=== PATIENT | female | born 1940 | race Caucasian/White ===

== ENCOUNTER 2022-06-02 12:23 | Outpatient (RCR) | payer MEDICARE, SELFPAY | END 2022-06-16 16:00 | disposition home or self-care (01) | LOC: HO.WCC 12:23 | PROVIDERS: PCP Internal Medicine; Referring Provider Internal Medicine; Visit Provider Physician Assistant | DX: L97.811 Non-pressure chronic ulcer of other part of right lower leg limited to breakdown of skin (principal); I87.2 Venous insufficiency (chronic) (peripheral); R60.0 Localized edema | CPT/HCPCS: 97597; 99212 ==

== ENCOUNTER 2022-08-15 10:04 | Outpatient (RCR) | payer MEDICARE, SELFPAY | END 2022-08-15 16:00 | disposition home or self-care (01) | LOC: HO.WCC 10:04 | PROVIDERS: PCP Internal Medicine; Visit Provider Physician Assistant | DX: Z09 Encounter for follow-up examination after completed treatment for conditions other than malignant neoplasm (principal); I87.2 Venous insufficiency (chronic) (peripheral); R60.0 Localized edema; I11.0 Hypertensive heart disease with heart failure; I50.9 Heart failure, unspecified; G62.9 Polyneuropathy, unspecified; I26.99 Other pulmonary embolism without acute cor pulmonale; Z87.2 Personal history of diseases of the skin and subcutaneous tissue | CPT/HCPCS: 99213 ==

== ENCOUNTER 2022-09-15 14:45 | Outpatient (RCR) | payer MEDICARE, SELFPAY | END 2022-09-30 16:00 | disposition home or self-care (01) | LOC: HO.WCC 14:45 | PROVIDERS: PCP Internal Medicine; Visit Provider Physician Assistant | DX: I87.331 Chronic venous hypertension (idiopathic) with ulcer and inflammation of right lower extremity (principal); L97.211 Non-pressure chronic ulcer of right calf limited to breakdown of skin; I87.2 Venous insufficiency (chronic) (peripheral); I11.0 Hypertensive heart disease with heart failure; I50.9 Heart failure, unspecified; G62.9 Polyneuropathy, unspecified; I26.99 Other pulmonary embolism without acute cor pulmonale; Z91.199 Patient's noncompliance with other medical treatment and regimen due to unspecified reason | CPT/HCPCS: 11042; 99212 ==

== ENCOUNTER 2022-09-26 10:05 | Outpatient (REF) | payer MEDICARE, SELFPAY ==
--- NOTE | ~2022-09-26 | US_ITS ---
CLINICAL INFORMATION: EXAMINATION: RIGHTLOWER EXTREMITY VENOUS ULTRASOUND (Reflux Exam) CLINICAL INDICATION: Venous insufficiency COMPARISON: None. TECHNIQUE: Color flow triplex imaging and compression Doppler was performed to evaluate both the deep and the superficial systems on the right with the patient in reverse Trendelenburg position. FINDINGS: 1. DEEP VENOUS ULTRASOUND OF THE RIGHT LOWER EXTREMITY: Respiratory variation, normal compression and augmented flow are noted in the right common femoral vein as well as the right popliteal vein and there is no evidence of deep venous thrombosis at these locations. There is no evidence of reflux in the deep system in either the common femoral vein or femoral vein. There is 3.1 seconds reflux in the popliteal vein. There is no evidence of a Barlow's cyst. 2. SUPERFICIAL ULTRASOUND WITH DOPPLER OF RIGHT LOWER EXTREMITY: The right great saphenous vein at the saphenofemoral junction measures 7 mm, at the mid thigh 4 mm, [id number] 4 mm, [id number] 3 mm, at mid calf 3 mm and at the ankle measures 3 mm. There is reflux in the greater saphenous vein measuring 2.9 seconds at the knee, 2.8 seconds below the knee, 3.3 seconds in the mid calf and greater than 3.6 seconds at the ankle. The right small saphenous vein measures 2-4 mm and shows no reflux. There are varicosities in the thigh that measure 3 to 4 mm and do not demonstrate reflux. There is a varicosity in the calf that measures 4 mm and demonstrates 3.2 seconds reflux. . US/US venous duplex LE RT IMPRESSION: 1. No evidence of DVT. Popliteal vein deep venous reflux. 2. Right greater saphenous vein reflux.
== END 2022-09-26 10:06 | disposition home or self-care (01) ==
LOC: HO.US 10:05
PROVIDERS: PCP Internal Medicine; Visit Provider Physician Assistant
DX: I87.2 Venous insufficiency (chronic) (peripheral) (principal)
CPT/HCPCS: 93971

== ENCOUNTER 2022-12-23 14:09 | Outpatient (AMB) | payer MEDICARE, SELFPAY ==
[2022-12-23 14:15] VITALS: BP 110/72; PULSE 91; O2SAT 98; BMI 36.2
--- NOTE | 2022-12-23 14:15 | A.OFFVIS_ITS ---
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 Pt states her wound is healed and scabbed over. Pt states she has issues with both of her legs mainly the right at the moment but the left is getting worse she states. Pt states she has severe swelling in her legs,ankles, and feet. Pt states she gets tingling in both of her legs and feet. Pt states she has tried compression stockings but she states they make it worse. Pt states she has some red discoloration in both of her lower legs that is worse some days than others. 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 Complaints include pain over varicosities, swelling of lower extremities, cramping, fatigue, and heaviness of the lower extremities. It has been affecting there daily activities including walking and has led to a wound. It is noted more so in right leg. Patient denies any previous venous surgery or injections. Patient denies any history of DVT/ PE. Patient denies any history of phlebitis. Trial of compression includes - [id number] and compression wraps [facility] They now present for vascular evaluation regarding their varicose veins. [facility] Surgical History (Updated 12/23/22 @ 14:23 by Phyllis Linda MA) Hx of total hysterectomy Family History (Updated 12/23/22 @ 14:21 by Phyllis Linda MA) Mother Lung cancer Social History (Updated 12/23/22 @ 14:21 by Phyllis Linda MA) Household Members: Spouse Housing: House Alcohol intake: never Patient Tobacco Use Status: Never used Tobacco service: No Current occupational status: retired Review of Systems Const Reports as per HPI ENT Reports no additional complaints Card Denies chest pain, Denies chest pain at rest and Denies chest pain with activity Resp Denies chest congestion and Denies cough GI Reports no additional complaints Musc Details: pain over varicosities, aching of lower extremities, swelling, cramping, heaviness and tiredness, itching Denies abnormal gait Skin/Breast Reports pruritus and Denies wounds Neuro Reports no additional complaints and Denies abnormal gait Psych Denies no additional complaints Physical Exam Vital Signs: Last Vital Signs Pulse 91 12/23/22 14:15 BP 110/72 12/23/22 14:15 Pulse Ox 98 12/23/22 14:15 Oxygen Delivery Method Room Air 12/23/22 14:15 BMI result Body Mass Index 36.2 Const General: cooperative, healthy appearing and comfortable Orientation/consciousness: oriented to person, oriented to place and oriented to time Neck Carotids: no bruits Chest Chest palpation & inspection: normal inspection of the chest and normal palpation of entire chest wall Resp Effort & Inspection: normal respiratory effort and able to speak in complete sentences Cardio Rate: regular rate Heart sounds: S1 normal heart sound present and S2 normal heart sound present Peripheral pulses: Peripheral pulses 2+ throughout GI Inspection: Yes normal to inspection Skin Other: +2 edema, right greater than left CEAP Classification C6 - open ulceration lateral calf Ep - Etiology Primary As - superficial veins P - reflux General skin exam: dry skin Neuro General: oriented to person, oriented to place and oriented to time Extrem Right lower extremity: full ROM, normal capillary refill and edema Left lower extremity: full ROM, normal capillary refill and edema Psych Mental Status: mental status grossly normal Results Reviewed Results Reviewed: Brief summary of venous insufficiency testing is as follows: right great saphenous vein: Positive right small saphenous vein: negative right accessory vein: none present Unfortunately left lower extremity venous insufficiency was not done Please note there is no evidence of any venous aneurysms or significant tortuosity Assessment & Plan Assessment & Plan (1) Varicose veins of right lower extremity with inflammation: Code(s): I83.11 - Varicose veins of right lower extremity with inflammation Plan: This patient has varicose veins with inflammation. They continue to be a source of discomfort for the patient. The patient has tried conservative treatment with compression, leg elevation and exercise program for over 3 months time. They have been compliant with all treatment. This has provided minimal relief for the patient. I do not anticipate this course of treatment will alter the underlying etiology. The patient has been scheduled for lower extremity venous treatment inclusive of --- right great saphenous vein Cyanoacralate ablation. Risks, benefits, and complications of this procedure has been discussed in detail with the patient including but not limited to bleeding, infection, and the development of a DVT. The patient has demonstrated a clear understanding and has consented. We will schedule the patient as soon as possible. Thank you for allowing us to participate in this patient's care. If there are any questions or concerns please do not hesitate to contact us. Coding Level of Care Code New Pt Level 4 (68065) Diagnoses Varicose veins of right lower extremity with inflammation I83.11
== END 2022-12-23 14:44 | disposition home or self-care (01) ==
PROVIDERS: PCP Internal Medicine; Visit Provider Surgery Vascular Surgery
DX: I83.11 Varicose veins of right lower extremity with inflammation (principal)
CPT/HCPCS: 99204

== ENCOUNTER → 2022-12-23 14:09 | Outpatient (BNVA) | payer MEDICARE, SELFPAY | PROVIDERS: PCP Internal Medicine; Visit Provider Surgery Vascular Surgery ==

== ENCOUNTER 2023-02-06 12:17 | Outpatient (AMB) | payer MEDICARE, SELFPAY ==
--- NOTE | 2023-02-06 12:43 | A.OFFVIS_ITS ---
Intake Vital Signs 02/06/23 12:44 Height 5 ft 2 in Weight 198 lb BMI 36.2 Intake Visit Reasons: Right GSV Venaseal Allergies ciprofloxacin Allergy (Intermediate, Verified 02/06/23 12:44) Stomach Upset PFSH Surgical History Hx of total hysterectomy Family History Mother Lung cancer Social History Household Members: Spouse Housing: House Alcohol intake: never Patient Tobacco Use Status: Never used Tobacco service: No Current occupational status: retired Physical Exam Vital Signs: BMI result Body Mass Index 36.2 Office Procedures Vascular Office Procedure Details Details: Diagnosis: Right Leg varicose veins with inflammation Procedure: Endovenous Ablation of the right Great Saphenous Vein with VenaSeal Closure System Anesthesia: Local infiltration 5 cc, Estimated Blood Loss: min Specimen: none Duplex ultrasound was used to map out the insufficient saphenous vein, and access was determined and marked on the overlying skin. The depth and diameter of the vein(s) to be treated was documented. The patient was placed supine on the procedure table and the leg was prepped and draped using sterile technique. Ultasound guidance was again used to localize the access site. 1% lidocaine was injected as a local anesthetic in the subcutaneous tissues at the target location in the GSV in the lower leg. Using ultrasound guidance, access was gained at this location with the 19 gauge thin walled access needle and followed by introduction of a short guidewire, location confirmed with ultrasound. A small, 3 mm incision was made at the access site to allow for introduction and placement of the 7 Fr x7cm introducer/dilator. The dilator and guidewire were removed. The 0.035 guidewire from the VenaSeal kit was then introduced and positioned at the saphenofemoral junction using ultrasound guidance. The 80 cm 7 Fr introducer sheath/dilator was positioned 5cm from the saphenofemoral junction. The guidewire and dilator were removed, and the remaining sheath was flushed with sterile saline, with the syringe remaining in place prior to the n ext steps. The cyanoacrylate adhesive was precisely primed into the 5 F delivery catheter and this catheter/syringe combination was attached within the dispenser gun. This assembly was introduced through the 7F sheath and positioned 5 cm caudal of the saphenofemoral junction under ultrasound guidance. The steps from the IFU were followed for dispensing amounts, locations and compression times, 2 aliquots proximally with 3 minutes of compression, and 1 aliquot every 3 cm distally with 30 sec of compression along the course of the vessel. Following the last injection and compression sequence, the catheter and introducer sheath were pulled out from the access site. Hemostasis was achieved with manual compression and an adhesive bandage was applied to the incision. Ultrasound confirmed complete coaptation and closure of the treated segments of the GSV, and the absence of any DVT at the saphenofemoral junction. Treatment time was approximately 7 minutes and the vein length treated was 55 cm. The drapes were removed and the patient cleaned and prepared for discharge. Post op ultrasound check is scheduled for 48-72 hours and the patient was given written post-op instructions. 36875 - Endoven Ther Chem Adhes 1st All charges added?: Procedure code (CPT) selection complete Coding Level of Care Code Procedure Only CPT Codes Details - Vascular 3: 50323 - Endoven Ther Chem Adhes 1st ([id number])
[2023-02-06 12:44] VITALS: BMI 36.2
== END 2023-02-06 13:25 | disposition home or self-care (01) ==
PROVIDERS: PCP Internal Medicine; Visit Provider Surgery Vascular Surgery
DX: I83.11 Varicose veins of right lower extremity with inflammation (principal)
CPT/HCPCS: 36482

== ENCOUNTER → 2023-02-06 12:17 | Outpatient (BNVA) | payer MEDICARE, SELFPAY | PROVIDERS: PCP Internal Medicine; Visit Provider Surgery Vascular Surgery | DX: I83.11 Varicose veins of right lower extremity with inflammation (principal) | CPT/HCPCS: 36482 ==

== ENCOUNTER 2023-02-09 12:29 | Outpatient (REF) | payer MEDICARE, SELFPAY ==
--- NOTE | ~2023-02-09 | US_ITS ---
EXAMINATION: US VENOUS ULTRASOUND WITH DOPPLER LOWER EXTREMITY, RIGHT CLINICAL INFORMATION: Pain in right leg. Rule out DVT right lower extremity status post right great saphenous vein Venaseal 02/06/2023. COMPARISON: Venous ultrasound 09/26/2022. TECHNIQUE: Ultrasound of the deep veins is performed from the hip to the calf with compression sonography and color and pulse Doppler assessment. Spectral analysis with color-flow imaging is performed. FINDINGS: The patient could not tolerate compression of the distal femoral vein or popliteal vein. Otherwise, there is normal venous compression and respiratory variation and augmented flow. The visualized common femoral vein, superficial femoral vein, profunda femoral vein, popliteal vein, and the peroneal vein shows no evidence of deep venous thrombosis. The posterior tibial vein was not visualized due to edema. There is no significant popliteal fossa cyst. The great saphenous vein is closed beginning 2.2 cm below the saphenofemoral junction. US/US venous duplex LE RT IMPRESSION: The great saphenous vein is closed beginning 2.2 cm below the saphenofemoral junction. No DVT demonstrated in the right lower extremity. Somewhat limited examination as the patient was unable to tolerate compression in the distal femoral vein and popliteal vein and the posterior tibial vein was not visualized due to edema.
== END 2023-02-09 12:30 | disposition home or self-care (01) ==
LOC: HO.US 12:29
PROVIDERS: PCP Internal Medicine; Visit Provider Surgery Vascular Surgery
DX: M79.604 Pain in right leg (principal)
CPT/HCPCS: 93971

== ENCOUNTER 2023-02-19 10:54 | Outpatient (AMB) | payer MEDICARE, SELFPAY ==
--- NOTE | 2023-02-19 10:55 | A.OFFVIS_ITS ---
Intake Vital Signs 02/19/23 10:57 Height 5 ft 2 in Weight 198 lb BMI 36.2 Intake Visit Reasons: 2 week follow up right gsv venaseal Intake Note: 2 week follow up Right GSV Venaseal 02/06/23. Pt states she still has some bruising and states its a little tender with or without touching the treated area. States swellijng in Right LE has decreased. US was done on 09/26/22 by woundcare and no longer has wounds on LE Accompanied by: Self / Same As Patient Allergies ciprofloxacin Allergy (Intermediate, Verified 02/19/23 11:05) Stomach Upset metronidazole [From Metrogel] Allergy (Intermediate, Verified 02/19/23 11:05) Rash HPI 2 week follow up right gsv venaseal HPI Details Very pleasant 82-year-old female presents for follow-up status post right lower extremity Cyanoacralate ablation. She reports she is doing really well after the procedure. Swelling and discomfort have decreased. Lateral calf ulceration also appears to have closed over. She now presents for follow-up. Of note postprocedure ultrasound was negative for DVT. In addition she is concerned about her left lower extremity which has similar swelling issues. [facility] Surgical History (Updated 02/19/23 @ 11:08 by YVONNE Cuellar) Status post ablation of incompetent vein using laser (~02/06/23) Hx of total hysterectomy Family History Mother Lung cancer Social History Household Members: Spouse Housing: House Alcohol intake: never Patient Tobacco Use Status: Never used Tobacco service: No Current occupational status: retired Review of Systems Const Reports as per HPI ENT Reports no additional complaints Card Denies chest pain, Denies chest pain at rest and Denies chest pain with activity Resp Denies chest congestion and Denies cough GI Reports no additional complaints Musc Details: pain over varicosities, aching of lower extremities, swelling, cramping, heaviness and tiredness, itching Denies abnormal gait Skin/Breast Reports pruritus and Denies wounds Neuro Reports no additional complaints and Denies abnormal gait Psych Denies no additional complaints Physical Exam Vital Signs: BMI result Body Mass Index 36.2 Const General: cooperative, healthy appearing and comfortable Orientation/consciousness: oriented to person, oriented to place and oriented to time Neck Carotids: no bruits Chest Chest palpation & inspection: normal inspection of the chest and normal palpation of entire chest wall Resp Effort & Inspection: normal respiratory effort and able to speak in complete sentences Cardio Rate: regular rate Heart sounds: S1 normal heart sound present and S2 normal heart sound present Peripheral pulses: Peripheral pulses 2+ throughout GI Inspection: Yes normal to inspection Skin Other: +2 edema, CEAP Classification C4 - skin color changes Ep - Etiology Primary As - superficial veins P - reflux General skin exam: dry skin Neuro General: oriented to person, oriented to place and oriented to time Extrem Right lower extremity: full ROM, normal capillary refill and edema Left lower extremity: full ROM, normal capillary refill and edema Psych Mental Status: mental status grossly normal Assessment & Plan Assessment & Plan (1) Varicose veins of right lower extremity with inflammation: Comment: 02/06/2023 Code(s): I83.11 - Varicose veins of right lower extremity with inflammation (2) Varicose veins of left lower extremity with inflammation: Code(s): I83.12 - Varicose veins of left lower extremity with inflammation Plan: Unfortunately prior venous insufficiency testing was not done on the left leg. She does have evidence venous insufficiency. I have taken the liberty of ord ering venous ultrasound. We did discuss routine conservative measures including compression, elevation, and exercise. She will follow up with us after testing. Thank you for allowing us to assist in her care. Orders: Orders US venous duplex LE LT 1 Week I83.12 - Varicose veins of left lower extremity with inflammation Coding Level of Care Code Est Pt Level 4 (69129) Diagnoses Varicose veins of right lower extremity with inflammation I83.11 Varicose veins of left lower extremity with inflammation I83.12
[2023-02-19 10:57] VITALS: BMI 36.2
== END 2023-02-19 11:26 | disposition home or self-care (01) ==
PROVIDERS: PCP Internal Medicine; Visit Provider Surgery Vascular Surgery
DX: I83.11 Varicose veins of right lower extremity with inflammation (principal); I83.12 Varicose veins of left lower extremity with inflammation
CPT/HCPCS: 99213

== ENCOUNTER → 2023-02-19 10:54 | Outpatient (BNVA) | payer MEDICARE, SELFPAY | PROVIDERS: PCP Internal Medicine; Visit Provider Surgery Vascular Surgery | DX: I83.11 Varicose veins of right lower extremity with inflammation (principal); I83.12 Varicose veins of left lower extremity with inflammation | CPT/HCPCS: 99212 ==

== ENCOUNTER 2023-03-10 12:07 | Outpatient (REF) | payer MEDICARE, SELFPAY ==
--- NOTE | ~2023-03-10 | US_ITS ---
EXAMINATION: US VENOUS ULTRASOUND WITH DOPPLER LOWER EXTREMITY, LEFT CLINICAL INFORMATION: Varicose veins of lower extremity. Pain. COMPARISON: None available. TECHNIQUE: Ultrasound of the deep veins is performed from the hip to the calf with compression sonography and color and pulse Doppler assessment. Spectral analysis with color-flow imaging is performed. FINDINGS: There is nonocclusive thrombus left common femoral vein to popliteal vein. Left posterior tibial vein and peroneal veins are not visualized probably secondary to thrombus There is no Barlow's cyst. If the patient's symptoms persist, followup ultrasound in 5 days 7 days might be of value to exclude proximal propagation from a non-visualized calf vein. US/US venous duplex LE IMPRESSION: Partially occlusive thrombus from left common femoral vein to popliteal vein.
== END 2023-03-10 12:08 | disposition home or self-care (01) ==
LOC: HO.US 12:07
PROVIDERS: PCP Internal Medicine; Visit Provider Surgery Vascular Surgery
DX: Z13.89 Encounter for screening for other disorder (principal)
CPT/HCPCS: 93971

== ENCOUNTER 2023-03-10 12:57 | Emergency (ER) | payer MEDICARE, SELFPAY ==
--- NOTE | 2023-03-10 13:12 | ED_ITS ---
HPI - General Adult General Chief complaint: Extremity Problem Stated complaint: ?DVT L Leg Time Seen by Provider: 03/10/23 14:05 Source: patient and other (expect from Dr. Tello) Mode of arrival: ambulatory Limitations: no limitations History of Present Illness HPI narrative: Patient is an 82-year-old female with history of varicose veins, PE 2 years ago presenting to the emergency department from ultrasound with preliminary positive she had DVT to left lower extremity. Patient reports that she has baseline swelling to left lower extremity but has had increased pain over the past several weeks, so Dr. Tello ordered an outpatient ultrasound. Patient recently had right lower extremity GSV venaseal on 02/06. She reports some shortness of breath but states this is also baseline for her. Denies chest pain, palpitations, dizziness or syncope. States that she has previously been on Eliquis when she had a PE. MD complaint: left lower leg pain Onset (ago): week(s) Location: left and lower extremity Radiation: non-radiation Severity: moderate Severity scale (1-10): 7 Quality: aching Pain Consistency: colicky Relieving factors: rest Exacerbating factors: movement Associated symptoms: denies other symptoms Treatments prior to arrival: none Related Data Home Medications Medication Instructions Recorded Confirmed acetaminophen 650 mg 650 mg PO Q6H PRN pain 12/23/22 tablet,extended release furosemide 40 mg tablet 40 mg PO BID 12/23/22 lisinopril 10 mg tablet 10 mg PO DAILY 12/23/22 omeprazole 10 mg capsule,delayed 10 mg PO QAM 12/23/22 release Previous Rx's Medication Instructions Recorded apixaban 5 mg (74 tabs) tablets in 5 mg PO BID #74 ea 03/10/23 a dose pack (Eliquis DVT-PE Treat 30D Start) Allergies Allergy/AdvReac Type Severity Reaction Status Date / Time ciprofloxacin Allergy Intermediate Stomach Verified 02/19/23 11:05 Upset metronidazole [From Metrogel] Allergy Intermediate Rash Verified 02/19/23 11:05 Review of Systems 2 Review of Systems: As per HPI. Yes all other systems are reviewed and are negative Constitutional: Constitutional: Reports as per HPI [facility] Past Medical History Surgical History (Updated 02/19/23 @ 11:08 by YVONNE Cuellar) Status post ablation of incompetent vein using laser (~02/06/23) Hx of total hysterectomy Family History Family History Mother Lung cancer Social History Social History Household Members: Spouse Housing: House Alcohol intake: never Patient Tobacco Use Status: Never used Tobacco Advance Directives: No Advance Directives Information Provided: Yes service: No Current occupational status: retired Physical Exam ED Vital Signs: Vital Signs - 24 hr 03/10/23 13:13 Temperature 96.2 F L Pulse Rate 94 Respiratory Rate 18 Blood Pressure 118/71 Pulse Oximetry 98 Oxygen Delivery Method Room Air BMI result Body Mass Index 35.1 Vital signs have been reviewed and appear to be correct. Blood pressure normal. Heart rate normal. Respiratory rate normal. Temperature normal. Oxygen saturation normal. Const General: cooperative, healthy appearing and no acute distress Orientation/consciousness: oriented to person, oriented to place, oriented to time and patient oriented x3 Limitations: no limitations HENMT Head: Yes normocephalic and Yes atraumatic Ears: external ears normal General nose exam: Normal external nose present Face and sinus: Yes face symmetric Mouth: oropharynx normal and moist mucous membranes Throat: Yes uvula midline Eyes Pupils: Equal, round and reactive pupils present Neck Neck: Yes normal visual inspection and Yes supple Resp Effort & Inspection: normal respiratory effort and able to speak in complete sentences Auscultation: clear to auscultation bilaterally Cardio Rate: regular rate Rhythm: regular rhythm Heart sounds: S1 normal heart sound present and S2 normal heart sound present GI Palpation (GI): Soft to palpation and nontender Auscultation: normoactive bowel sounds General: Yes no CVA tenderness Back/Spine/Pelvis Back: no CVA tenderness Skin General skin exam: elasticity normal and turgor normal Neuro General: oriented to person, oriented to place, oriented to time, patient oriented x3, moves all extremities, no focal motor deficits and CN's II-XI intact bilaterally Cranial nerves: Yes Equal, round and reactive pupils present Cognition (Neuro): normal cognition Extrem General: Yes full ROM, Yes no pedal edema and Yes calf tenderness (left) Left lower extremity: lower leg Details: tenderness (popliteal fossa) Location: of the posterior calf; no palpable cords and no unusual warmth and foot Details: vascular exam Details: dorsalis pedis pulse present and posterior tibial pulse present Psych Mental Status: mental status grossly normal Affect: normal affect Thought process: Normal thought process present Course Course Course Narrative: This is an RME: Additional HPI, ROS, PE not included below will be deferred to primary provider. 82-year-old female presents today for left lower extremity swelling and discomfort. Dr. Tello sent her for an ultrasound which came back positive for DVT in the LLE. She's not currently on blood thinners. No chest pain. She reports intermittent shortness of breath. Plan: Labs Medical Decision Making Medical Decision Making [facility] Narrative: Patient is an 82-year-old female with history of varicose veins, PE 2 years ago presenting to the emergency department from ultrasound with preliminary positive she had DVT to left lower extremity. On exam patient is awake, A+Ox3, VS WNL, afebrile, normal neurological exam without focal deficits, physical exam findings as above. Given reported symptoms and physical exam findings, initial differential includes left lower extremity DVT. Labs notable for normal H&H, elevated BUN/creatinine, mild thrombocytopenia, PT/INR wnl. Left lower extremity ultrasound notable for partially occlusive thrombus from left common femoral vein to popliteal vein. My interpretation is in agreement with the radiologist's interpretation. Results discussed with Dr. Tello who was advised of patient's kidney function and platelet count, and agrees with initiation of Eliquis. Risks discussed with patient and patient educated on returning to the ED for evaluation if she has any falls, or other injury/trauma, hematochezia, melena, hematuria. Patient did express some concern regarding cost of Eliquis, but is agreeable to initiating treatment with Eliquis at this time and following up with Dr. Tello. Spoke with pharmacist to confirm dosing, pharmacist confirms no renal dose adjustment when treating for DVT. Will administer pm dose in the ED as patient's pharmacy will be closed prior to her discharge. Patient verbalized understanding of risks, stating that she has been on Eliquis previously and has been is also currently on Eliquis. She states that she lives at home with her and feels safe for discharge and outpatient treatment. Differential Diagnosis Differential Diagnoses: The differential diagnosis associated with the presentation includes As per [facility] Consult Healthcare Provider Management of the patient was discussed with: Assembly Detailer (Dr. Tello) Lab Data [facility] Lab Attestation statement: I reviewed the patient's lab results. As per MDM 03/10/23 13:59 03/10/23 13:59 Labs: Lab Results 03/10/23 03/10/23 Range/Units 13:59 15:46 WBC 8.0 (4.8-10.8) X10*3/uL RBC 4.04 L (4.20-5.50) X10*6/uL Hgb 12.5 (12.0-16.0) g/dl Hct 38.1 (37.0-47.0) % MCV 94.3 (80.0-98.0) fL MCH 30.9 (27.0-33.0) pg MCHC 32.8 (31.0-35.0) g/dl RDW 13.0 (11.0-16.0) % Plt Count 138 L (160-400) X10*3/uL MPV 10.4 (9.4-12.3) fL Immature Gran % (Auto) 0.5 H (0.0-0.4) % Neut % (Auto) 67.1 (45-73) % Lymph % (Auto) 20.3 (20-40) % Wagoner % (Auto) 9.4 (2-11) % Eos % (Auto) 2.4 (0-4) % Baso % (Auto) 0.3 (0-2) % Lymph # (Auto) 1.6 (1.2-4.9) X10*3/uL Wagoner # (Auto) 0.8 (0.1-1.2) X10*3/uL Eos # (Auto) 0.2 (0.0-0.4) X10*3/uL Baso # (Auto) 0.0 (0.0-0.2) X10*3/uL Abs Immat Gran (auto) 0.04 H (0.00-0.03) X10*3/uL Absolute Neuts (auto) 5.4 (2.0-8.3) x10*3/uL Absolute Nucleated RBC 0.000 (0.0-0.012) X10*3/uL Nucleated RBC % (auto) 0.0 (0.0-0.2) /100WBC PT 11.3 (11.1-13.3) SEC INR 0.9 (0.9-1.1) Sodium 142 (135-145) mmol/L Potassium 4.3 (3.3-5.1) mmol/L Chloride 106 (96-108) mmol/L Carbon Dioxide 29 (22-29) mmol/L Anion Gap 11 L (12-20) BUN 45 H (9-16) mg/dL Creatinine 1.52 H (0.5-1.4) mg/dL Estim Creat Clear Calc 28.7 Estimated GFR 33 Random Glucose 101 (60-115) mg/dL Calcium 9.1 (8.4-10.2) mg/dL Total Bilirubin 0.7 (0.0-1.0) mg/dL AST 17 (5-31) U/L ALT 24 (0-31) U/L Alkaline Phosphatase 79 (39-117) U/L Total Protein 7.2 (6.5-8.0) g/dL Albumin 3.6 (3.5-5.0) g/dL Independent Interpretation I performed an independent interpretation of an: Ultrasound Interpretation: Left common femoral vein DVT Radiology Impression Discussion of test interpretation with radiology: I have reviewed the radiologist's reading. Radiologist Impression: US/US venous duplex LE LT IMPRESSION: Partially occlusive thrombus from left common femoral vein to popliteal vein. External Record Review External record reviewed: Inpatient record, Office record, Outpatient record and Prior outpatient radiology Prescription Management I considered prescription management with: Other Discharge Plan Discharge Clinical Impression: Deep vein thrombosis of lower extremity Qualifiers: Affected thrombotic vein of extremity: femoral Chronicity: unspecified L aterality: left Qualified Code(s): I82.412 - Acute embolism and thrombosis of left femoral vein Patient Disposition: Home, Self-Care Instructions: Apixaban (By mouth), Deep Vein Thrombosis (ED) Additional Instructions: You were evaluated in the emergency department today for left lower leg pain. Your ultrasound showed evidence of a DVT, also known as a blood clot, in your leg. You are being started on Eliquis to treat this, you were given the first dose in the emergency department today. Please call Dr. Tello's office to schedule a follow up appointment. IT IS VERY IMPORTANT THAT YOU RETURN TO THE EMERGENCY DEPARTMENT FOR EVALUATION IF YOU HAVE ANY FALLS, HIT YOUR HEAD, HAVE ANY OTHER INJURIES, HAVE BLOOD IN YOUR URINE, BLOOD IN YOUR STOOL, OR DARK, TARRY STOOL. You should also return to the emergency department if you develop chest pain, shortness of breath, palpitations, fainting, or any other concerning symptoms. Prescriptions: Jonny Danielson DVT-PE Treat 30D Start 5 mg (74 tabs) tablets,dose pack 5 mg PO BID Qty: 74 0RF No Action omeprazole 10 mg capsule,delayed release(DR/EC) 10 mg PO QAM furosemide 40 mg tablet 40 mg PO BID lisinopril 10 mg tablet 10 mg PO DAILY acetaminophen 650 mg tablet extended release 650 mg PO Q6H PRN (Reason: pain) Referrals: Mahendra Tello MD [Physician] -
[2023-03-10 13:13] VITALS: BP 118/71; PULSE 94; RESP 18; TEMP 35.7; O2SAT 98; BMI 35.1
[2023-03-10 14:05] LABS: Basophils Percent Auto 0.3 % (0-2); Eosinophils Absolute Auto 0.2 X10*3/uL (0.0-0.4); Eosinophils Percent Auto 2.4 % (0-4); Hematocrit 38.1 % (37.0-47.0); Hemoglobin 12.5 g/dl (12.0-16.0); Imm Gran Abs Auto 0.04 X10*3/uL (0.00-0.03); Imm Gran Pct Auto 0.5 % (0.0-0.4); Lymphocytes Absolute Auto 1.6 X10*3/uL (1.2-4.9); Lymphocytes Percent Auto 20.3 % (20-40); MANUAL DIFF FLAG NO; Mean Corpuscular HGB Conc 32.8 g/dl (31.0-35.0); Mean Corpuscular Hemoglobin 30.9 pg (27.0-33.0); Mean Corpuscular Volume 94.3 fL (80.0-98.0); Mean Platelet Volume 10.4 fL (9.4-12.3); Monocytes Absolute Auto 0.8 X10*3/uL (0.1-1.2); Monocytes Percent Auto 9.4 % (2-11); Neutrophils Absolute Auto 5.4 x10*3/uL (2.0-8.3); Neutrophils Percent Auto 67.1 % (45-73); Platelet Count 138 X10*3/uL (160-400); Red Blood Count 4.04 X10*6/uL (4.20-5.50)
[2023-03-10 14:23] LABS: Alanine Aminotransferase 24 U/L (0-31); Albumin Level 3.6 g/dL (3.5-5.0); Alkaline Phosphatase 79 U/L (39-117); Anion Gap 11 (12-20); Aspartate Amino Transferase 17 U/L (5-31); Bilirubin Total 0.7 mg/dL (0.0-1.0); Blood Urea Nitrogen 45 mg/dL (9-16); Calcium 9.1 mg/dL (8.4-10.2); Carbon Dioxide 29 mmol/L (22-29); Chloride 106 mmol/L (96-108); Creatinine Clr Calc Pharmacy 28.7; Estimated Glomerular Filt Rate 33; Glucose Random 101 mg/dL (60-115); Potassium 4.3 mmol/L (3.3-5.1); Sodium 142 mmol/L (135-145); Total Protein 7.2 g/dL (6.5-8.0)
--- NOTE | 2023-03-10 17:23 | PC.NURSE ---
patient a&ox3, pt had a pt/inr redraw per request of lab, we have been awaiting results from redraw and are now on hold with the lab as they look for the lab. The patient is currently tearful stating she is 79s and is upset having to drive 1 hr to get home in the [place] as her vision is as well so usually doesnt drive at night, this nurse is attempting to find results for the patient.
--- NOTE | 2023-03-10 17:27 | PC.NURSE ---
the lab was able to find the redraw and is running it right now, will update the patient
[2023-03-10 17:33] LABS: INTERNATIONAL NORM RATIO 0.9 (0.9-1.1); Prothrombin Time 11.3 SEC (11.1-13.3)
[2023-03-10] MEDS: Apixaban 5 MG TABLET 10 MG PO (17:44)
[2023-03-10 17:47] VITALS: BP 121/76; PULSE 92; RESP 18; TEMP 36.6; O2SAT 98
== END 2023-03-10 17:48 | disposition home or self-care (01) ==
PROVIDERS: Physician Assistant; Emergency Provider Emergency Medicine; PCP Internal Medicine
DX: I82.412 Acute embolism and thrombosis of left femoral vein (principal); M79.605 Pain in left leg
CPT/HCPCS: 36415; 80053; 85025; 85610; 93971; 99283

== ENCOUNTER 2023-04-07 11:03 | Outpatient (AMB) | payer MEDICARE, SELFPAY ==
[2023-04-07 11:11] VITALS: BP 122/74; PULSE 94; O2SAT 97; BMI 35.1
--- NOTE | 2023-04-07 11:11 | A.OFFVIS_ITS ---
Intake Vital Signs 04/07/23 11:11 Height 5 ft 2 in Weight 192 lb BMI 35.1 BP 122/74 Blood Pressure Location Rt brachial Position Sitting Pulse 94 Pulse Source Pulse Oximeter Pulse Oximetry (%) 97 Oxygen Delivery Method Room Air Intake Visit Reasons: FU and ER visit Intake Note: Pt presents to the office today for a follow up and ER visit. Pt states she is having pain, numbness and tingling, and swelling in both legs. Pt sattes she was in the ER on 03/10/23. Pt states they found a blood clot in her left leg. Allergies ciprofloxacin Allergy (Intermediate, Verified 04/07/23 11:14) Stomach Upset metronidazole [From Metrogel] Allergy (Intermediate, Verified 04/07/23 11:14) Rash HPI FU and ER visit HPI Details Very pleasant 82-year-old female presents for follow-up status post venous insufficiency ultrasound. She had undergone right great saphenous vein ablation. We were in the process of working up her left lower extremity when we discovered a DVT. It presented from the left common femoral to popliteal vein. She was asymptomatic from this. Upon discussion did report a pulmonary embolism when she had undergone bowel surgery at [facility]. She had been treated with 6 months of anticoagulants and then it was stopped. [facility] Surgical History Status post ablation of incompetent vein using laser (~02/06/23) Hx of total hysterectomy Family History Mother Lung cancer Social History Household Members: Spouse Housing: House Alcohol intake: never Patient Tobacco Use Status: Never used Tobacco service: No Current occupational status: retired Review of Systems Const Reports as per HPI ENT Reports no additional complaints Card Denies chest pain, Denies chest pain at rest and Denies chest pain with activity Resp Denies chest congestion and Denies cough GI Reports no additional complaints Musc Details: pain over varicosities, aching of lower extremities, swelling, cramping, heaviness and tiredness, itching Denies abnormal gait Skin/Breast Reports pruritus and Denies wounds Neuro Reports no additional complaints and Denies abnormal gait Psych Denies no additional complaints Physical Exam Vital Signs: Last Vital Signs Pulse 94 04/07/23 11:11 BP 122/74 04/07/23 11:11 Pulse Ox 97 04/07/23 11:11 Oxygen Delivery Method Room Air 04/07/23 11:11 BMI result Body Mass Index 35.1 Const General: cooperative, healthy appearing and comfortable Orientation/consciousness: oriented to person, oriented to place and oriented to time Neck Carotids: no bruits Chest Chest palpation & inspection: normal inspection of the chest and normal palpation of entire chest wall Resp Effort & Inspection: normal respiratory effort and able to speak in complete sentences Cardio Rate: regular rate Heart sounds: S1 normal heart sound present and S2 normal heart sound present Peripheral pulses: Peripheral pulses 2+ throughout GI Inspection: Yes normal to inspection Skin Other: +2 edema, large rope-like varicosities greater than 4 mm CEAP Classification C4 - skin color changes Ep - Etiology Primary As - superficial veins P - reflux General skin exam: dry skin Neuro General: oriented to person, oriented to place and oriented to time Extrem Right lower extremity: full ROM, normal capillary refill and edema Left lower extremity: full ROM, normal capillary refill and edema Psych Mental Status: mental status grossly normal Assessment & Plan Assessment & Plan (1) DVT (deep venous thrombosis): Code(s): I82.409 - Acute embolism and thrombosis of unspecified deep veins of unspecified lower extremity Qualifiers: DVT location: lower extremity Affected thrombotic vein of extremity: femoral Chronicity: unspecified Laterality: left Qualified Code(s): I82.412 - Acute embolism and thrombosis of left femoral vein Plan: In short patient has left lower extremity DVT. I did personally review the imaging and it appears actually more chronic in nature as it is partially occlusive in appears to have recannulize. Unclear when this really began and would treat this for at least 3 months of anticoagulation. Just by the nature of a DVT she will have deep reflux and that may be leading to some of the swelling of her lower extremities as well. I did discuss this with the patient and I will actually have the patient follow up with us in 3 months time to e nsure that her legs are doing relatively well. She will follow up with us after that time should there be any interval issues happy to see her back sooner. (2) Varicose veins of right lower extremity with inflammation: Comment: 02/06/2023 right great saphenous vein ablation Code(s): I83.11 - Varicose veins of right lower extremity with inflammation Plan: Appears to be relatively well status post right great saphenous vein Cyanoacra late ablation. The lateral ulcer has gone on to heal. She does have significant edema. I would like to treat her for lymphedema but the concern is this left lower extremity DVT. At the current time would anticoagulate her and then will see how she does. (3) Lymphedema: Code(s): I89.0 - Lymphedema, not elsewhere classified Plan: I do believe she has an element of lymphedema as well. Due to her acute DVT will hold off on treatment for now. She will 1st see us in 3 months Coding Level of Care Code Est Pt Level 4 (19465) Diagnoses Deep vein thrombosis (DVT) of femoral vein of left lower extremity, unspecified chronicity I82.412 DVT location: lower extremity Affected thrombotic vein of extremity: femoral Chronicity: unspecified Laterality: left Varicose veins of right lower extremity with inflammation I83.11 Lymphedema I89.0
== END 2023-04-07 11:30 | disposition home or self-care (01) ==
PROVIDERS: PCP Internal Medicine; Visit Provider Surgery Vascular Surgery
DX: I82.412 Acute embolism and thrombosis of left femoral vein (principal); I83.11 Varicose veins of right lower extremity with inflammation; I89.0 Lymphedema, not elsewhere classified
CPT/HCPCS: 99214

== ENCOUNTER → 2023-04-07 11:03 | Outpatient (BNVA) | payer MEDICARE, SELFPAY | PROVIDERS: PCP Internal Medicine; Visit Provider Surgery Vascular Surgery | DX: I82.412 Acute embolism and thrombosis of left femoral vein (principal); I83.11 Varicose veins of right lower extremity with inflammation; I89.0 Lymphedema, not elsewhere classified | CPT/HCPCS: 99212 ==

== ENCOUNTER 2023-07-07 11:02 | Outpatient (AMB) | payer MEDICARE, SELFPAY ==
--- NOTE | 2023-07-07 11:05 | A.OFFVIS_ITS ---
Intake Vital Signs 07/07/23 11:08 Height 5 ft 2 in Weight 192 lb BMI 35.1 Intake Visit Reasons: 3 month leg check Information Interpreted: non-clinical & clinical Accompanied by: Self / Same As Patient Allergies ciprofloxacin Allergy (Intermediate, Verified 07/07/23 11:10) Stomach Upset metronidazole [From Metrogel] Allergy (Intermediate, Verified 07/07/23 11:10) Rash HPI 3 month leg check HPI Details Very complex 82-year-old female presents for follow-up evaluation regarding her swollen lower extremities. She actually had undergone right great saphenous vein ablation with us. In addition she has a prior history of DVT with PE after bowel surgery at [facility]. Also had another episode of a DVT. She has been anticoagulated. In addition she has significantly swollen bilateral lower extremities which has been progressing for a significant period of time. She now presents to us for follow-up evaluation. [facility] Surgical History Status post ablation of incompetent vein using laser (~02/06/23) Hx of total hysterectomy Family History Mother Lung cancer Social History Household Members: Spouse Housing: House Alcohol intake: never Patient Tobacco Use Status: Never used Tobacco service: No Current occupational status: retired Review of Systems Const All systems reviewed & are unremarkable except as noted in HPI and below Reports no additional complaints ENT Reports Normal hearing present Card Denies chest pain, Denies chest pain at rest, Denies chest pain with activity and Denies pedal edema Resp Denies cough GI Denies abdominal pain Musc Denies abnormal gait, Denies muscle cramps and Denies radiating pain into limb Skin/Breast Denies skin ulcer and Denies wounds Neuro Reports Normal hearing present and Denies abnormal gait Psych Reports no additional complaints Physical Exam Vital Signs: BMI result Body Mass Index 35.1 Const General: cooperative, healthy appearing and comfortable Orientation/consciousness: oriented to person, oriented to place and oriented to time HEENT Head: Yes normal to inspection Neck Neck: Yes normal visual inspection Carotids: no bruits Chest Chest palpation & inspection: normal inspection of the chest Resp Effort & Inspection: normal respiratory effort and able to speak in complete sentences Auscultation: clear to auscultation bilaterally, no crackles, no rales, no rhonchi and no wheezes Cardio Rate: regular rate Rhythm: regular rhythm Heart sounds: S1 normal heart sound present and S2 normal heart sound present Bruits: no carotid bruits Peripheral pulses: Peripheral pulses 2+ throughout GI Inspection: Yes normal to inspection Skin Wounds: no wounds Hair: normal Neuro General: oriented to person, oriented to place and oriented to time Cranial nerves: Yes CN's II-XII intact bilaterally and Yes Normal hearing present Cognition (Neuro): normal cognition Motor exam (neuro): 5/5 motor strength present throughout Extrem Other: venous exam: Bilateral +3 edema, swelling over the dorsum of the foot with stigmata of lymphedema General: No clubbing, No cyanosis and Yes edema Psych Appearance: grossly normal Mental Status: mental status grossly normal Speech and movement: Normal speech and movement present Assessment & Plan Assessment & Plan (1) Varicose veins of right lower extremity with inflammation: Comment: 02/06/2023 right great saphenous vein ablation Code(s): I83.11 - Varicose veins of right lower extremity with inflammation Plan: Stable status post ablation. (2) Lymphedema: Code(s): I89.0 - Lymphedema, not elsewhere classified Plan: I do believe she has an element of lymphedema. Unfortunately she is somewhat noncompliant and very resistant to treatment. She feels that the ablation did not improve her swelling and may be causing additional problems. I reassured her that we did have a postprocedure ultrasound and everything was within normal limits. Some of this reflux may be related to her to prior DVT episodes in addition to her prior abdominal surgery. I do believe she has an element lymphedema. She flat out refused those lymphedema pumps. She states that she is unclear of what it would do. I did provide her an information booklet regarding this. Unfortunately I do not feel that she is confident in our services. She was quite resistant in upset about the overall status of her legs. I did suggest that she may be better served at a tertiary care center. I wish her the best of luck and she will not follow up with us in the future. If further cares required would refer to tertiary care center Coding Level of Care Code Est Pt Level 3 (61714) Diagnoses Varicose veins of right lower extremity with inflammation I83.11 Lymphedema I89.0
[2023-07-07 11:08] VITALS: BMI 35.1
== END 2023-07-07 11:44 | disposition home or self-care (01) ==
PROVIDERS: PCP Internal Medicine; Visit Provider Surgery Vascular Surgery
DX: I83.11 Varicose veins of right lower extremity with inflammation (principal); I89.0 Lymphedema, not elsewhere classified
CPT/HCPCS: 99213

== ENCOUNTER → 2023-07-07 11:02 | Outpatient (BNVA) | payer MEDICARE, SELFPAY | PROVIDERS: PCP Internal Medicine; Visit Provider Surgery Vascular Surgery | DX: I83.11 Varicose veins of right lower extremity with inflammation (principal); I89.0 Lymphedema, not elsewhere classified; Z86.718 Personal history of other venous thrombosis and embolism; Z86.711 Personal history of pulmonary embolism; Z79.01 Long term (current) use of anticoagulants | CPT/HCPCS: 99212 ==

== ENCOUNTER 2024-09-02 11:00 | Outpatient (RCR) | payer MEDICARE, SELFPAY | END 2024-09-02 12:58 | disposition home or self-care (01) | LOC: HO.OT 11:00 | PROVIDERS: PCP Internal Medicine; Visit Provider Nurse Practitioner | DX: I89.0 Lymphedema, not elsewhere classified (principal) | CPT/HCPCS: 97110; 97140; 97166; 97535 ==